=== PATIENT | male | born 1995 | race Two or more races ===

== ENCOUNTER 2019-06-25 08:43 | Emergency (ER) | payer SELFPAY ==
--- NOTE | 2019-06-25 09:24 | ER Document Report ---
ED Medical Screen (RME) - General Chief Complaint: Weakness Stated Complaint: WEAKNESS Time Seen by Provider: 06/25/19 09:22 Mode of Arrival: Ambulatory Information source: Patient - HPI Notes: 06/25/19 09:22 24-year-old female presents emergency room for evaluation of productive cough, stomach cramping, congestion and sore throat overall general weakness that is been going on since Saturday. Patient did test positive for influenza B on Saturdayjun 21, patient states she was not prescribed any Tamiflu, she is been trying [id number] ibuprofen and Tylenol without relief. Patient denies any chest pain, reports chest wall pain with coughing. Decreased eating and drinking. I have greeted and performed a rapid initial assessment of this patient. A comprehensive ED assessment and evaluation of the patient, analysis of test results and completion of the medical decision making process will be conducted by additional ED providers. PHYSICAL EXAMINATION: GENERAL: Acutely ill well-nourished and in no acute distress. HEAD: Atraumatic, normocephalic. NECK: Normal range of motion CV: s1, s2 regular LUNGS: No respiratory distress Musculoskeletal: Normal range of motion NEUROLOGICAL: Normal speech, normal gait. SKIN: Warm, Dry, normal turgor, no rashes or lesions noted. Physical Exam - Vital signs Vitals: Temp Pulse Resp BP Pulse Ox 99.1 F 86 18 125/61 98 06/25/19 08:48 06/25/19 08:48 06/25/19 08:48 06/25/19 08:48 06/25/19 08:48 Course - Vital Signs Vital signs: Temp Pulse Resp BP Pulse Ox 99.1 F 86 18 125/61 98 06/25/19 08:48 06/25/19 08:48 06/25/19 08:48 06/25/19 08:48 06/25/19 08:48
[2019-06-25] MEDS ORDERED: ONDANSETRON 4 MG TAB.RAPDIS PO ONE (09:30)
--- NOTE | 2019-06-25 09:34 | ER Document Report ---
ED Medical Screen (RME) - General Chief Complaint: Flu Symptoms Stated Complaint: WEAKNESS Time Seen by Provider: 06/25/19 09:22 Mode of Arrival: Ambulatory - [facility] Notes: Please disregard previous RME is that was placed on a different patient and is not pertaining to this patient 06/25/19 09:32 24-year-old male presents to the emergency room for complaints of vomiting, weakness, body aches that started this morning as well as bleeding from his left ear which started last night. Patient took an old antibiotic from a previous illness last night which did not help. Patient reports productive cough. Reports chills, has not tried any [id number] medications aside from the antibiotic that he took last night, does not know the name of this medication. Patient denies prior history of ear infections. I have greeted and performed a rapid initial assessment of this patient. A comprehensive ED assessment and evaluation of the patient, analysis of test results and completion of the medical decision making process will be conducted by additional ED providers. PHYSICAL EXAMINATION: GENERAL: Well-appearing, well-nourished and in no acute distress. HEAD: Atraumatic, normocephalic. ENT: Left TM with erythema, dried blood TM appears to be perforated. Scant tenderness around left mastoid bone on palpation NECK: Normal range of motion CV: s1, s2 regular LUNGS: No respiratory distress Musculoskeletal: Normal range of motion NEUROLOGICAL: Normal speech, normal gait. SKIN: Warm, Dry, normal turgor, no rashes or lesions noted. - Related Data Allergies/Adverse Reactions: No Known Allergies Allergy (Verified 06/25/19 09:30) Physical Exam - Vital signs Vitals: Temp Pulse Resp BP Pulse Ox 99.1 F 86 18 125/61 98 06/25/19 08:48 06/25/19 08:48 06/25/19 08:48 06/25/19 08:48 06/25/19 08:48 Course - Vital Signs Vital signs: Temp Pulse Resp BP Pulse Ox 99.1 F 86 18 125/61 98 06/25/19 08:48 06/25/19 08:48 06/25/19 08:48 06/25/19 08:48 06/25/19 08:48
[2019-06-25 09:58] LABS: ABSOLUTE EOSINOPHILS # (AUTO) 0.1 10^3/uL (0.0-0.6); ABSOLUTE MONOCYTES (AUTO) 1.7 10^3/uL (0.1-1.4); HEMOGLOBIN 14.1 g/dL (13.5-17.0); MEAN CORPUSCULAR HEMOGLOBIN 31.5 pg (27.0-33.4); RED BLOOD COUNT 4.47 10^6/uL (4.35-5.55); TOTAL CELLS COUNTED % (AUTO) 100 %
[2019-06-25 10:03] LABS: ABSOLUTE LYMPHOCYTES (AUTO) 1.5 10^3/uL (0.5-4.7); ABSOLUTE NEUT (AUTO) 15.1 10^3/uL (1.7-8.2); BASOPHILS % (AUTO) 0.2 % (0-2); EOSINOPHILS % (AUTO) 0.7 % (0-6); HEMATOCRIT 40.9 % (37.9-51.0); MEAN CORPUSCULAR HGB CONC 34.5 g/dL (32.0-36.0); MEAN CORPUSCULAR VOLUME 91 fl (80-97); MONOCYTES % (AUTO) 9.1 % (3-13); PLATELET COUNT 285 10^3/uL (150-450); RED CELL DISTRIBUTION WIDTH 12.5 % (11.5-14.0); WHITE BLOOD COUNT 18.5 10^3/uL (4.0-10.5)
[2019-06-25 10:17] LABS: A TYPE INFLUENZA AG NEGATIVE (NEGATIVE); B INFLUENZA AG NEGATIVE (NEGATIVE)
[2019-06-25 10:23] LABS: ALKALINE PHOSPHATASE 55 U/L (38-126); ANION GAP 10 (5-19); ASPARTATE AMINO TRANSFERASE 26 U/L (17-59); BILIRUBIN,DIRECT 0.2 mg/dL (0.0-0.4); BILIRUBIN,TOTAL 0.9 mg/dL (0.2-1.3); BLOOD UREA NITROGEN 11 mg/dL (7-20); CALCIUM 9.3 mg/dL (8.4-10.2); CARBON DIOXIDE 27 mmol/L (22-30); CHLORIDE 101 mmol/L (98-107); GLUCOSE 155 mg/dL (75-110); TOTAL PROTEIN 7.2 g/dL (6.3-8.2)
--- NOTE | 2019-06-25 12:23 | ER Document Report ---
ED General - General Chief Complaint: Flu Symptoms Stated Complaint: WEAKNESS Time Seen by Provider: 06/25/19 09:22 Primary Care Provider: [facility] [Provider Group] - Follow up as needed BÁRBARA TOWNSEND DO [ASSOCIATE] - Follow up in 1 week Mode of Arrival: Ambulatory TRAVEL OUTSIDE OF THE [place] IN LAST 30 DAYS: No - HPI Notes: 24-year-old male to the emergency department with complaints of left-sided ear pain with drainage that began this morning. He states that his ear is been bothering him for the past 3 days. He admits to associated sore throat and a little bit of nasal congestion. He states that however his ear has really been what is been bothering him the most. He states that the pressure kept building and then this morning he awoke to find blood coming from his ear. He denies any known fevers. He admits that he had a little bit of dizziness this morning with his ear pain and had couple episodes of vomiting. He states that the pain in his ear radiates to the front of his face giving him a headache as well. Denies any abdominal pain, diarrhea, chest pain, shortness of breath. He denies any sick contacts. - Related Data Allergies/Adverse Reactions: No Known Allergies Allergy (Verified 06/25/19 09:30) Past Medical History - General Information source: Patient - Social History Smoking Status: Never Smoker Frequency of alcohol use: None Drug Abuse: None Family History: Reviewed & Not Pertinent Patient has suicidal ideation: No Patient has homicidal ideation: No Past Surgical History: Reports: Hx Appendectomy Review of Systems - Review of Systems Constitutional: denies: Chills, Fever EENT: Ear pain, Ear discharge, Nose congestion, Throat pain Cardiovascular: See HPI, Dizziness. denies: Chest pain, Palpitations, Dyspnea, Syncope, Lightheaded Respiratory: Cough. denies: Short of breath Gastrointestinal: Nausea, Vomiting. denies: Abdominal pain, Diarrhea Male Genitourinary: No symptoms reported Musculoskeletal: No symptoms reported Skin: No symptoms reported Hematologic/Lymphatic: No symptoms reported -: Yes All other systems reviewed and negative Physical Exam - Vital signs Vitals: Temp Pulse Resp BP Pulse Ox 99.1 F 86 18 125/61 98 06/25/19 08:48 06/25/19 08:48 06/25/19 08:48 06/25/19 08:48 06/25/19 08:48 Interpretation: Normal - General General appearance: Appears well, Alert In distress: None - HEENT Head: Normocephalic Eyes: Normal Pupils: PERRL Ears: Other - No mastoid tenderness bilaterally. No: Ecchymosis, Pinna tenderness, Tragus laceration, Tragus tenderness External canal: Blood in canal - There is blood and the left external canal with noted purulence. Right canal is clear Tympanic membrane: Perforation - The left TM is perforated and surrounding TM is erythematous. From it is draining purulent and bloody discharge. Right TM is clear Hearing loss: Left Sinus: Normal Nasal: Normal Mouth/Lips: Normal Pharynx: Post nasal drainage. No: Blood in hypopharynx, Erythema, Exudate Neck: Normal, Supple. No: Lymphadenopathy, Meningismus - Respiratory Respiratory status: No respiratory distress Chest status: Nontender Breath sounds: Normal. No: Rales, Rhonchi, Stridor, Wheezing Chest palpation: Normal - Cardiovascular Rhythm: Regular Heart sounds: Normal auscultation Murmur: No - Abdominal Inspection: Normal Distension: No distension Bowel sounds: Normal Tenderness: Nontender Organomegaly: No organomegaly - Back Back: Normal, Nontender - Extremities General lower extremity: No: Ema's sign - Neurological Neuro grossly intact: Yes Cognition: Normal Orientation: AAOx4 [place] Coma Scale Eye Opening: Spontaneous [place] Coma Scale Verbal: Oriented [place] Coma Scale Motor: Obeys Commands [place] Coma Scale Total: 15 Speech: Normal Cranial nerves: Normal Cerebellar coordination: Normal Motor strength normal: LUE, RUE, LLE, RLE Additional motor exam normals: 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 No: Pronator drift Sensory: Normal - Psychological Associated symptoms: Normal affect, Normal mood - Skin Skin Temperature: Warm Skin Moisture: Dry Skin Color: Normal Course - Re-evaluation Re-evalutation: 06/25/19 Impression: Left otitis media with perforation. We will go ahead and start on Augmentin and also give Cortisporin. Will send home with Motrin, Zofran, small amount of Tylenol 3. We will have him follow with ENT. Likely his hearing loss is from the perforation. Likely the dizziness is from disequilibrium from the perforation as well. His lab work is otherwise reassuring and vital signs are reassuring. Will discharge home. He is with plan. Gave strict return cautions. - Vital Signs Vital signs: Temp Pulse Resp BP Pulse Ox 98.0 F 80 18 120/60 100 06/25/19 13:14 06/25/19 13:14 06/25/19 13:14 06/25/19 13:14 06/25/19 13:14 - Laboratory Result Diagrams: 06/25/19 09:35 06/25/19 09:35 Laboratory results interpreted by me: 06/25/19 06/25/19 09:35 09:35 WBC 18.5 H Lymph % (Auto) 8.0 L Absolute Neuts (auto) 15.1 H Absolute Monos (auto) 1.7 H Seg Neutrophils % 82.0 H Glucose 155 H Discharge - Discharge Clinical Impression: Ear pain, left, Nausea & vomiting Otitis media, acute with perforation of eardrum Qualifiers: Laterality: left Recurrence: non-recurrent Qualified Code(s): H66.012 - Acute suppurative otitis media with spontaneous rupture of ear drum, left ear Condition: Stable Disposition: HOME, SELF-CARE Instructions: Otitis Media ([facility]), Perforated Eardrum ([facility]) Additional Instructions: COMPLETE ALL ANTIBIOTICS. RETURN IF WORSENING SYMPTOMS. FOLLOW UP WITH ENT WITHOUT FAIL IN 7-10 DAYS. Prescriptions: Ondansetron [Zofran Odt 4 mg Tablet] 1 - 2 tab PO Q4HP PRN #10 tab.rapdis PRN Reason: Amox Tr/Potassium Clavulanate [Augmentin 875-125 Tablet] 1 tab PO BID 10 Days #20 tablet Neomy Sulf/Polymyx B Sulf/Hc [Cortisporin Ear Suspension] 4 drop OT TID #10 ml Ibuprofen [Motrin 800 mg Tablet] 800 mg PO Q8H PRN #30 tab PRN Reason: Acetaminophen with Codeine [Tylenol #3 Tablet] 1 each PO Q6H PRN #10 tablet PRN Reason: Referrals: BÁRBARA TOWNSEND DO [ASSOCIATE] - Follow up in 1 week [facility] [Provider Group] - Follow up as needed
[2019-06-25] MEDS ORDERED: KETOROLAC TROMETHAMINE 60 MG/2 ML SDV IM ONE (12:34)
[2019-06-25] MEDS ORDERED: ACETAMINOPHEN WITH CODEINE #3 TABLET PO ONE (12:35)
[2019-06-25 13:16] VITALS: BP 120/60
== END 2019-06-25 13:14 | disposition home or self-care (01) ==
LOC: ER 08:43
DX: H66.012 Acute suppurative otitis media with spontaneous rupture of ear drum, left ear (principal); H92.02 Otalgia, left ear; R11.2 Nausea with vomiting, unspecified; R53.1 Weakness; R05 Cough; R10.9 Unspecified abdominal pain; M79.10 Myalgia, unspecified site; R09.81 Nasal congestion
CPT/HCPCS: 99284; 96372; 36415; 87070; 87880; 83690; 85025; 80053; 87804; J1885; S0119